=== PATIENT | female | born 1985 | race Caucasian/White ===

== ENCOUNTER → 2017-01-31 | Outpatient (CLI) | payer OTHER ==
[~2017-01-31] MED LIST: HYDR-3989 PO; IBUP-1547 PO
--- NOTE | 2017-01-31 09:08 | DI ---
Indication: ITS.REASON: M54.16 RADICULOPATHY, M54.5 PAIN PROCEDURE: MRI LUMBAR SPINE W/O CONTRAST: Encounter: Initial Comparison: None Technique: Multiplanar multisequence MR imaging of the lumbar spine was performed without contrast. Findings: Alignment of the lumbar spine is within normal limits. No acute fracture or subluxation. Vertebral body heights are maintained. Conus medullaris terminates normally at L1-L2. The paraspinal soft tissues are within normal limits. No obvious focal edema or erosive change along the visualized sacroiliac joints. Segmental analysis: L1-L2: Normal L2-L3: Normal L3-L4: Normal L4-L5: Disk desiccation with a focal central disk extrusion extending slightly along the L5 vertebra. This measures 12 x 5 mm on sagittal image #[id number]. This contributes to moderate central canal stenosis and is in close proximity to the traversing L5 nerve roots bilaterally. Mild facet disease contributes to minimal right neural foraminal narrowing. No left foraminal stenosis. 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 .
== END ==
LOC: IMA 07:00
PROVIDERS: ATTEND Family Medicine Sports Medicine
DX: M48.06 Spinal stenosis, lumbar region (principal); M51.26 Other intervertebral disc displacement, lumbar region; M54.16 Radiculopathy, lumbar region